=== PATIENT | male | born 1945 | race Caucasian/White ===

== ENCOUNTER 2017-01-08 08:23 | Emergency (ER) | payer MEDICARE, OTHER ==
[2017-01-08 08:48] LABS: Hematocrit 40.9 % (42.0-52.0); Hemoglobin 13.8 gm/dL (13.5-18.0); Mean Cell Volume 90.1 fl (78-100); Mean Corpuscular Hemoglobin 30.4 pg (27-31); Mean Corpuscular Hgb Conc 33.7 g/dl (32-36); Neutrophil # 2.6 K/mm3 (1.3-6.0); Neutrophil % 46.7 % (42-75.0); Platelet Count 184 K/mm3 (150-450); Red Blood Count 4.54 M/mm3 (4.7-6.0); Red Cell Distribution Width 13.1 % (11.5-14.0); White Blood Count 5.5 K/mm3 (4.0-10.5)
--- NOTE | 2017-01-08 08:52 | ERNOTE ---
Chest Pain/Cardiac HPI Date of Service: 01/08/17 Chief Complaint: Chest Pain Source: patient Exam Limitations: no limitations Immunizations: IMMUNIZATION HX Immunizations Up to Date Yes Allergies/Adverse Reactions: Allergies No Known Allergies Allergy (Unverified 01/08/17 08:33) Home Medications: HOME MEDICATIONS Alprazolam 1 mg PO TID 01/08/17 [Last Taken Unknown] Budesonide/Formoterol Fumarate [Symbicort 160-4.5 Mcg Inhaler] 10.2 gm IH BID [Last Taken Unknown] Cetirizine HCl [All Day Allergy] 10 mg PO DAILY 01/08/17 [Last Taken Unknown] Diltiazem HCl 30 mg PO BID 01/08/17 [Last Taken Unknown] HYDROcodone/ACETAMINOPHEN [[place] 5-325] 1 - 2 tab PO Q6H PRN 01/08/17 [Last Taken Unknown] Lovastatin [Altoprev] 20 mg PO HS 01/08/17 [Last Taken Unknown] Metoprolol Tartrate 50 mg PO BID 01/08/17 [Last Taken Unknown] Topiramate [Topamax] 25 mg PO BID 01/08/17 [Last Taken Unknown] Warfarin Sodium [Coumadin] 0.5 mg PO DAILY 01/08/17 [Last Taken Unknown] Warfarin Sodium [Coumadin] 2.5 mg PO DAILY 01/08/17 [Last Taken Unknown] tiZANidine HCL [Tizanidine HCl] 4 mg PO HS 01/08/17 [Last Taken Unknown] Narrative: Patient complains of epigastric abdominal pain for approximately 1 month. He is describing a burning-like sensation with slight radiation over to the left anterior inferior chest. It does not appear to be worsened by exertion and he denies any shortness of breath or diaphoresis and also denies any neck arm or jaw pain. Timing: intermittent Severity/Quality: mild Location: epigastric Chest Pain Radiation: other - as noted Activities at Onset: none Associated Symptoms: Present: denies symptoms Prior Chest Pain/Cardiac Workup: Reports: no prior cardiac workup Review of Systems - Review of Systems Constitutional: Present: See HPI EYE: Present: no symptoms reported ENT: Present: no symptoms reported Respiratory: Present: no symptoms reported Cardiology: Present: no symptoms reported Gastrointestinal/Abdominal: Present: abdominal pain Genitourinary: Present: no symptoms reported Musculoskeletal: Present: no symptoms reported Skin: Present: no symptoms reported Neurological: Present: no symptoms reported Endocrine: Present: no symptoms reported Hematologic/Lymphatic: Present: no symptoms reported Psych: Present: no symptoms reported - Patient's Past Medical History Patient History - Medical: Other - CVA Patient History - Cardiac/Respiratory: Arrhythmias - Social History Smoking Status: Never smoker Have you smoked in the past 12 months: No - Immunizations Immunizations Up to Date: Yes Physical Exam - Physical Exam General Appearance: Present: wd/wn, alert, no apparent distress Eye Exam: Normal inspection: bilateral, PERRL: bilateral Ears, Nose, Throat: Present: normal ENT inspection, H, normal pharynx Neck: Present: normal inspection, nontender Respiratory: Present: no respiratory distress, normal breath sounds, no accessory muscle use, chest nontender, lungs clear Cardiovascular/Chest: Present: no murmur, normal peripheral pulses, irregularly irregular Gastrointestinal/Abdominal: Present: normal bowel sounds, nondistended, soft, no organomegaly, tenderness - in the epigastric region Rectal Exam: Present: deferred Back Exam: Present: normal inspection, normal range of motion Extremity Exam: Present: normal inspection, non-tender, no edema, normal range of motion Neurological Exam: Present: alert, oriented, normal mood/affect Skin Exam: Present: normal color, warm/dry Lymphatic Exam: Present: no adenopathy ED Progress - Results and Orders Patient's Lab Results:: I have reviewed the patient's lab results. - Vital Signs Patient's Vital Signs:: I have reviewed the patient's vital signs. Vital Signs: Vital Signs 01/08/17 08:33 Temperature 36.9 C Pulse Rate 66 Respiratory 15 Rate Blood Pressure 124/85 O2 Sat by Pulse 99 Oximetry - X-Ray X-Ray #1 X-Ray: chest Interpretation: Reviewed by me - Progress/Reassessment Chief Complaint: Chest Pain Progress:: Unchanged Plan - Plan Plan: Patient has had chest pain intermittently for one month and has an EKG which is unchanged from the previous, a negative troponin and is currently symptom free. As the patient is slightly over anticoagulated I will have him hold his Coumadin for 1 day and I have arranged for an outpatient stress test to be done as soon as possible. Patient would likely benefit from an EGD as he states he has a distant history of an early gastric ulcer. I will instruct the patient to hold off on any alcohol for now as he does drink rarely. Patient is discharged in stable condition and symptom free. Departure - Departure Clinical Impression: Atypical chest pain Gastritis Qualifiers: Gastritis type: unspecified gastritis Chronicity: acute Gastritis bleeding: without bleeding Qualified Code(s): K29.00 - Acute gastritis without bleeding Disposition: Home self-care Instructions: Gastritis, Adult, [id number], Pleurodynia Referrals: Venkata James MD [Primary Care Provider] -
[2017-01-08 08:58] LABS: Prothrombin Time (Patient) 37.5 Seconds (9.4-11.4)
[2017-01-08 09:00] LABS: INR 3.61 INR (0.90-1.10); Partial Thrombolplastin Time 58.4 Seconds (24-32)
[2017-01-08 09:08] LABS: Troponin I Less than 0.017 ng/ml (0.00-0.10)
[2017-01-08 09:09] LABS: ALT 38 U/L (19-67); AST 30 U/L (0-48); Albumin * 3.6 gm/dl (3.4-5.0); Alkaline Phosphatase * 66 U/L (50-170); Anion Gap 12.5 mmol/L (6.8-13.8); BUN/Creatinine Ratio 15.5 (9.0-21.6); Bilirubin, Total 0.7 mg/dL (0.0-1.1); Blood Urea Nitrogen 16 mg/dL (6-23); Ca. Corrected For Albumin 8.4 mg/dL (8.4-10.2); Calcium * 8.4 mg/dL (7.9-10.9); Carbon Dioxide 24.3 mmol/L (24-32.6); Chloride 109 mmol/L (97-106); Glucose * 100 mg/dL (70-110); Potassium 3.8 mmol/L (3.4-4.6); Sodium 142 mmol/L (132-142); Total Protein 7.1 gm/dL (6.2-8.2)
[2017-01-08 10:07] VITALS: BP 104/72
== END 2017-01-08 10:03 | disposition home or self-care (01) ==
LOC: ER 08:23
DX: R07.89 Other chest pain (principal); K29.00 Acute gastritis without bleeding; I63.9 Cerebral infarction, unspecified; I49.9 Cardiac arrhythmia, unspecified; Z79.01 Long term (current) use of anticoagulants